=== PATIENT | male | born 1985 | race Asian ===

== ENCOUNTER 2021-07-07 09:10 | Outpatient (CLI) | payer OTHER | END 2021-07-07 09:11 | disposition home or self-care (01) | LOC: CSHWCC 09:10 | PROVIDERS: ATTEND Nurse Practitioner Family | DX: T87.89 Other complications of amputation stump (principal); Z89.421 Acquired absence of other right toe(s) ==

== ENCOUNTER 2021-07-11 09:03 | Outpatient (CLI) | payer OTHER | END 2021-07-11 09:04 | disposition home or self-care (01) | LOC: CSHWCC 09:03 | PROVIDERS: ATTEND Nurse Practitioner Family | DX: T81.89XD Other complications of procedures, not elsewhere classified, subsequent encounter (principal) | CPT/HCPCS: 97605 ==

== ENCOUNTER 2021-07-14 09:49 | Outpatient (CLI) | payer OTHER | END 2021-07-14 09:50 | disposition home or self-care (01) | LOC: CSHWCC 09:49 | PROVIDERS: ATTEND Nurse Practitioner Family | DX: T87.89 Other complications of amputation stump (principal); Z89.421 Acquired absence of other right toe(s) | CPT/HCPCS: 97605 ==

== ENCOUNTER 2021-07-17 11:14 | Outpatient (CLI) | payer OTHER | END 2021-07-17 11:15 | disposition home or self-care (01) | LOC: CSHWCC 11:14 | PROVIDERS: ATTEND Nurse Practitioner Family | DX: T81.89XD Other complications of procedures, not elsewhere classified, subsequent encounter (principal) | CPT/HCPCS: 99212; G0463 ==

== ENCOUNTER 2021-07-27 15:09 | Outpatient (CLI) | payer OTHER | END 2021-07-27 15:10 | disposition home or self-care (01) | LOC: CSHWCC 15:09 | PROVIDERS: ATTEND Nurse Practitioner Family | DX: T81.89XD Other complications of procedures, not elsewhere classified, subsequent encounter (principal) | CPT/HCPCS: 99212; G0463 ==

== ENCOUNTER 2021-07-31 15:21 | Outpatient (CLI) | payer OTHER | END 2021-07-31 15:22 | disposition home or self-care (01) | LOC: CSHWCC 15:21 | PROVIDERS: ATTEND Nurse Practitioner Family | DX: T81.89XD Other complications of procedures, not elsewhere classified, subsequent encounter (principal) | CPT/HCPCS: 99212; G0463 ==

== ENCOUNTER 2021-08-03 15:34 | Outpatient (CLI) | payer OTHER | END 2021-08-03 15:35 | disposition home or self-care (01) | LOC: CSHWCC 15:34 | PROVIDERS: ATTEND Nurse Practitioner Family | DX: T87.89 Other complications of amputation stump (principal); Z89.421 Acquired absence of other right toe(s) | CPT/HCPCS: 99212; G0463 ==

== ENCOUNTER 2021-08-07 12:45 | Outpatient (CLI) | payer OTHER | END 2021-08-07 12:46 | disposition home or self-care (01) | LOC: CSHWCC 12:45 | PROVIDERS: ATTEND Nurse Practitioner Family | DX: T81.89XD Other complications of procedures, not elsewhere classified, subsequent encounter (principal) | CPT/HCPCS: 99212; G0463 ==

== ENCOUNTER 2021-08-17 10:34 | Outpatient (CLI) | payer OTHER | END 2021-08-17 10:35 | disposition home or self-care (01) | LOC: CSHWCC 10:34 | PROVIDERS: ATTEND Nurse Practitioner Family | DX: T87.89 Other complications of amputation stump (principal); Z89.421 Acquired absence of other right toe(s) ==

== ENCOUNTER 2021-08-24 11:07 | Outpatient (CLI) | payer OTHER | END 2021-08-24 11:08 | disposition home or self-care (01) | LOC: CSHWCC 11:07 | PROVIDERS: ATTEND Nurse Practitioner Family | DX: T87.89 Other complications of amputation stump (principal); S91.301D Unspecified open wound, right foot, subsequent encounter; Z89.421 Acquired absence of other right toe(s) | CPT/HCPCS: 99213; G0463 ==

== ENCOUNTER 2021-08-29 12:59 | Outpatient (CLI) | payer OTHER | END 2021-08-29 13:00 | disposition home or self-care (01) | LOC: CSHWCC 12:59 | PROVIDERS: ATTEND Nurse Practitioner Family | DX: T81.89XD Other complications of procedures, not elsewhere classified, subsequent encounter (principal); S91.301D Unspecified open wound, right foot, subsequent encounter | CPT/HCPCS: 99213; G0463 ==

== ENCOUNTER 2021-08-31 13:16 | Outpatient (CLI) | payer OTHER | END 2021-08-31 13:17 | disposition home or self-care (01) | LOC: CSHWCC 13:16 | PROVIDERS: ATTEND Nurse Practitioner Family | DX: T81.89XD Other complications of procedures, not elsewhere classified, subsequent encounter (principal); S91.301D Unspecified open wound, right foot, subsequent encounter | CPT/HCPCS: 99213; G0463 ==

== ENCOUNTER 2021-09-08 10:38 | Outpatient (CLI) | payer OTHER | END 2021-09-08 10:39 | disposition home or self-care (01) | LOC: CSHWCC 10:38 | PROVIDERS: ATTEND Nurse Practitioner Family | DX: S91.301D Unspecified open wound, right foot, subsequent encounter (principal) | CPT/HCPCS: 11042 ==

== ENCOUNTER 2022-04-04 10:01 | Day surgery (SDC) | payer OTHER ==
[2022-04-03 09:06] VITALS: BMI 29.0
[~2022-04-04 10:01] MED LIST: Bupivacaine PF 0.5% 30 ML VIAL ONE; CEFAZOLIN 1 GM VIAL ONE; Neomycin-Polymyxin 1 ML AMP ONE
[2022-04-04] MEDS ORDERED: Midazolam HCl 2 mg/2 ml Vial ONE (13:57)
[2022-04-04] MEDS ORDERED: Fentanyl 100 MCG/2 ML VIAL ONE ×2 (13:57→15:06)
[2022-04-04] MEDS ORDERED: PROPOFOL 20 ML ONE (13:57)
[2022-04-04] MEDS ORDERED: Dexamethasone 20 MG/5 ML VIAL ONE (13:58)
[2022-04-04] MEDS ORDERED: Ketorolac Tromethamine 30 MG/ML VIAL ONE (13:58)
[2022-04-04] MEDS ORDERED: Ondansetron PF 4 MG/2 ML Vial ONE (13:58)
[2022-04-04] MEDS ORDERED: Glycopyrrolate 0.2 MG/ML 5 ML SYRINGE ONE (13:58)
[2022-04-04] MEDS ORDERED: Lidocaine 2% PF 5 ML VIAL ONE (13:59)
[2022-04-04] MEDS ORDERED: PHENYLEPHRINE-NS 100 MCG/ML 10 ML SYRINGE ONE (14:27)
== END 2022-04-04 16:35 | disposition home or self-care (01) ==
LOC: CSHSDC 10:01
PROVIDERS: ATTEND Podiatrist Foot & Ankle Surgery
PROC: 0Y6T0Z0 Detachment at Right 3rd Toe, Complete, Open Approach (ICD-10-PCS; principal; 2022-04-04)
PROC: 0Y6V0Z0 Detachment at Right 4th Toe, Complete, Open Approach (ICD-10-PCS; principal; 2022-04-04)
PROC: 0Y6Q0Z0 Detachment at Left 1st Toe, Complete, Open Approach (ICD-10-PCS; principal; 2022-04-04)
DX: E11.621 Type 2 diabetes mellitus with foot ulcer (principal); L97.419 Non-pressure chronic ulcer of right heel and midfoot with unspecified severity; S93.144A Subluxation of metatarsophalangeal joint of right lesser toe(s), initial encounter; M86.9 Osteomyelitis, unspecified; M79.674 Pain in right toe(s); Z79.4 Long term (current) use of insulin; Z79.899 Other long term (current) drug therapy; F17.200 Nicotine dependence, unspecified, uncomplicated; Z88.8 Allergy status to other drugs, medicaments and biological substances; X58.XXXA Exposure to other specified factors, initial encounter
CPT/HCPCS: 36416; J0690; J1100; J1885; J2001; J2250; J2405; J2704; J3010; S0020

== ENCOUNTER 2022-11-28 10:32 | Day surgery (SDC) | payer OTHER ==
[2022-11-27 09:34] VITALS: BMI 29.9
[2022-11-28] MEDS ORDERED: PROPOFOL 20 ML ONE (12:44)
[2022-11-28] MEDS ORDERED: fentaNYL 50 mcg/mL 1 mL Vial ONE (12:45)
[2022-11-28] MEDS ORDERED: Ketorolac Tromethamine 30 MG/ML VIAL ONE (12:45)
[2022-11-28] MEDS ORDERED: Dexamethasone 20 MG/5 ML VIAL ONE (12:45)
[2022-11-28] MEDS ORDERED: Midazolam HCl 2 mg/2 ml Vial ONE (12:45)
[2022-11-28] MEDS ORDERED: Lidocaine 1% (PF) 30 ML VIAL ONE (12:49)
[2022-11-28] MEDS ORDERED: CEFAZOLIN 2 GM VIAL ONE (13:05)
[2022-11-28] MEDS ORDERED: Bupivacaine PF 0.5% 30 ML VIAL ONE (13:05)
[2022-11-28] MEDS ORDERED: PHENYLEPHRINE-NS 100 MCG/ML 10 ML SYRINGE ONE ×2 (13:52→13:53)
[2022-11-28] MEDS ORDERED: Phenylephrine 10 MG/ML VIAL ONE (13:55)
== END 2022-11-28 15:40 | disposition home or self-care (01) ==
LOC: CSHSDC 10:32
PROVIDERS: ATTEND Podiatrist Foot & Ankle Surgery
PROC: 0STN0ZZ Resection of Left Metatarsal-Phalangeal Joint, Open Approach (ICD-10-PCS; principal; 2022-11-28)
DX: S93.145A Subluxation of metatarsophalangeal joint of left lesser toe(s), initial encounter (principal); M21.272 Flexion deformity, left ankle and toes; E11.40 Type 2 diabetes mellitus with diabetic neuropathy, unspecified; E11.621 Type 2 diabetes mellitus with foot ulcer; L97.529 Non-pressure chronic ulcer of other part of left foot with unspecified severity; X58.XXXA Exposure to other specified factors, initial encounter
CPT/HCPCS: 36416; J1100; J1885; J2001; J2250; J2370; J2704; J3010; S0020

== ENCOUNTER 2023-01-10 13:05 | Outpatient (CLI) | payer OTHER | END 2023-01-10 13:06 | disposition home or self-care (01) | LOC: CSHWCC 13:05 | PROVIDERS: ATTEND Preventive Medicine Undersea and Hyperbaric Medicine | DX: S91.309D Unspecified open wound, unspecified foot, subsequent encounter (principal) | CPT/HCPCS: 11042; 93923; 99203; G0463 ==